=== PATIENT | female | born 1965 | race Caucasian/White ===

== ENCOUNTER 2021-09-30 09:26 | Outpatient (CLI) | payer OTHER | END 2021-09-30 09:27 | disposition home or self-care (01) | LOC: CSHCT 09:26 | PROVIDERS: ATTEND Internal Medicine Gastroenterology | DX: R10.13 Epigastric pain (principal); Z83.79 Family history of other diseases of the digestive system | CPT/HCPCS: 74170 ==

== ENCOUNTER 2023-09-03 10:46 | Outpatient (CLI) | payer OTHER | END 2023-09-03 10:47 | disposition home or self-care (01) | LOC: CSHMAMMO 10:46 | PROVIDERS: ATTEND Family Medicine | DX: Z12.31 Encounter for screening mammogram for malignant neoplasm of breast (principal) | CPT/HCPCS: 77063; 77067 ==